=== PATIENT | female | born 1960 | race Caucasian/White ===

== ENCOUNTER 2016-08-16 12:56 | Emergency (ER) | payer OTHER ==
[~2016-08-16] VITALS: Ht 152.4 cm; Wt 56.0 kg
[~2016-08-16 12:56] MED LIST: ASPI-664 PO; ATEN50TA PO; BENA1TAB14 PO; CHOLESTEROL MED; FER325 PO; INHALER
[2016-08-16 13:07] VITALS: Ht 152.4 cm; Wt 56.0 kg
[2016-08-16] MEDS ORDERED: morphine 4 MG/ML VIAL IV STA (15:42)
[2016-08-16] MEDS ORDERED: ONDANSETRON 4 MG INJ IV STA (15:42)
[2016-08-16] MEDS ORDERED: SOD CHLORIDE 0.9% 1,000 ML IV STA (15:42)
[2016-08-16] MEDS ORDERED: hydrALAzine 20 MG INJ IV ONE (16:00)
[2016-08-16 16:03] LABS: BASOPHIL # 0.1 10^3/ul (0.0-0.1); BASOPHILS % 0.9 % (0.0-2.0); EOSINOPHILS # 0.3 10^3/ul (0.0-0.5); EOSINOPHILS % 3.6 % (0.0-7.0); HEMATOCRIT 42.6 % (37.0-47.0); LYMPHOCYTES # 2.3 10^3/ul (0.8-2.9); LYMPHOCYTES % 30.5 % (15.0-51.0); MEAN CORPUSCULAR HEMOGLOBIN 26.7 pg (29.0-33.0); MEAN CORPUSCULAR HGB CONC 32.9 g/dl (32.0-37.0); MEAN CORPUSCULAR VOLUME 81.1 fl (82.0-101.0); MEAN PLATELET VOLUME 9.4 fl (7.4-10.4); MONOCYTE # 0.5 10^3/ul (0.3-0.9); MONOCYTES % 6.4 % (0.0-11.0); NEUTROPHIL # 4.5 10^3/ul (1.6-7.5); NEUTROPHILS % 58.6 % (39.0-77.0); PLATELET COUNT 207 10^3/UL (140-440); RED BLOOD COUNT 5.26 10^6/ul (4.20-5.40); RED CELL DISTRIBUTION WIDTH 14.7 % (11.5-14.5); UNCORRECTED WBC 7.7 10^3/ul (4.8-10.8); WHITE BLOOD COUNT 7.7 10^3/ul (4.8-10.8)
[2016-08-16 16:14] LABS: CHLORIDE 101 mmol/L (97-110); INR 0.91; POTASSIUM 3.3 mmol/L (3.5-5.1); PROTIME 12.3 Sec (12.2-14.2); SODIUM 144 mmol/L (135-144)
[2016-08-16 16:15] LABS: PARTIAL THROMBOPLASTIN TIME 28.3 Sec (25.0-35.0)
[2016-08-16 16:16] LABS: AMYLASE 84 U/L (11-123)
[2016-08-16 16:17] LABS: ALANINE AMINOTRANSFERASE 28 IU/L (13-69); ALBUMIN/GLOBULIN RATIO 1.21; ALKALINE PHOSPHATASE 96 IU/L (42-121); ANION GAP 15 (8-16); ASPARTATE AMINO TRANSFERASE 26 IU/L (15-46); BILIRUBIN,INDIRECT 0.2 mg/dl (0-1.1); BILIRUBIN,TOTAL 0.2 mg/dl (0.2-1.3); BLOOD UREA NITROGEN 18 mg/dl (7-20); CALCIUM 9.2 mg/dl (8.4-10.2); CARBON DIOXIDE 31 mmol/L (21-31); CREATININE 0.59 mg/dl (0.44-1.00); GLUCOSE 91 mg/dl (70-220); TOTAL PROTEIN 7.3 g/dl (6.1-8.1)
[2016-08-16 16:19] LABS: CONDITION 1; LH ANALYZER COMMENTS 1
--- NOTE | 2016-08-16 16:22 | RADRPT ---
PROCEDURE: US right upper quadrant CLINICAL INDICATION: Abdominal pain TECHNIQUE: Multiple real-time images were acquired of the patient's right upper abdomen utilizing a high resolution transducer. COMPARISON: None available FINDINGS: Liver: Normal in size, contour and echogenicity. Normal directional blood flow is seen within the p atent main portal vein. The maximum dimension estimated at 13.8 cm . Gallbladder: No evidence of gallstones or sludge, the wall is thickened measuring 4.37 mm. No tay cholecystic fluid is present. No sonographic Middleton's sign is reported. Common bile duct: Normal; 3.65 mm. There is no evidence for choledocholithiasis. Right Kidney: Normal; maximum length measured at approximately 11.7 cm. Incidental simple cysts are present the largest measuring 4.1 x 3.7 x 3.7 cm. Pancreas: Visualized portions are normal. The tail is partially obscured by bowel gas. RPTAT:HJJR IMPRESSION: 1. Nonspecific gallbladder wall thickening without gallstones, a report of a sonographic Middleton's s ign or ductal dilatation. Findings may be related to hypoalbuminemia. 2. Incidental simple cysts of the right kidney. Physician Navi Date Time Electronically viewed and signed by Physician Navi on 08/16/2016 16:21 /
[2016-08-16 16:26] LABS: ADD UMIC YES; URINE BILIRUBIN (Dip) NEGATIVE (NEGATIVE); URINE BLOOD (Dip) TRACE (NEGATIVE); URINE COLOR LT. YELLOW (YELLOW); URINE GLUCOSE (Dip) NEGATIVE (NEGATIVE); URINE KETONES (Dip) NEGATIVE (NEGATIVE); URINE LEUKOCYTE ESTERASE (Dip) NEGATIVE (NEGATIVE); URINE NITRITE (Dip) NEGATIVE (NEGATIVE); URINE TOTAL PROTEIN (Dip) NEGATIVE (NEGATIVE); URINE UROBILINOGEN (Dip) 0.2 E.U./dL (0.1-1.0)
[2016-08-16] MEDS ORDERED: LORA0.5T PO (16:38)
[2016-08-16] MEDS ORDERED: ALBU18HF INHALATION (16:39)
[2016-08-16] MEDS ORDERED: LOSA1TAB21 PO (16:39)
[2016-08-16 16:41] LABS: TROPONIN-I < 0.012 ng/ml (0.00-0.12)
[2016-08-16 16:51] LABS: SQUAMOUS EPITHELIAL CELL,UR FEW
[2016-08-16 16:52] LABS: URINE RBCS 0-2 /HPF (0)
[2016-08-16 17:05] VITALS: TEMP 98.6
[2016-08-16] MEDS ORDERED: IOHEXOL 300MG/ML 150 ML BTL ONE (18:31)
[2016-08-16] MEDS ORDERED: SOD CHLORIDE 0.9% 100 ML ONE (18:31)
--- NOTE | 2016-08-16 18:33 | ERD ---
ER Documentation Chief Complaint Date/Time DATE: 08/16/16 TIME: 18:23 Chief Complaint pt bib self with c/o abd pain x 2 days HPI This is a very pleasant 56-year-old Indonesian-speaking female that presents to the emergency department complaining of intermittent right upper and lower quadrant pain for the past 2 days. The patient had appendectomy roughly 15 years ago. She indicates that the pain is more prominent at night and gets better throughout the day. She denies any associated symptoms of nausea vomiting diarrhea or constipation. She has had no recent travel or prolonged immobilization. She has no shortness of breath at rest or exertion. She denies any night sweats or weight loss. She did not take any analgesic medication for the pain. She indicates that the pain does not radiate to the back. The pain is not exacerbated with eating and there is no other alleviating factors to the pain. She has no chest pain or pressure that radiates to the neck arm back or jaw. ROS All systems reviewed and are negative except as per history of present illness. Medications Home Meds Active Scripts Ibuprofen* (Motrin*) 800 Mg Tab, 800 MG PO Q6H Y for PAIN AND OR ELEVATED TEMP, #30 TAB Prov:RAQUEL LOPEZ 08/16/16 Reported Medications Albuterol Sulfate* (Ventolin HFA*) 18 Gm Hfa.aer.ad, 2 PUFF INHALATION Q6H, #1 INHALER 08/16/16 Losartan-Hydrochlorothiazide (Losartan-HCTZ) 100-12.5 Mg Tab, 1 TAB PO DAILY, TAB 08/16/16 Lorazepam* (Lorazepam*) 0.5 Mg Tablet, 0.5 MG PO HS Y for ANXIETY, TAB 08/16/16 Aspirin* (Aspirin* EC) 81 Mg Tablet.dr, 81 MG PO DAILY, TAB 03/25/14 Discontinued Reported Medications [Cholesterol Med] No Conflict Check 03/19/16 [Inhaler] No Conflict Check 03/19/16 Ferrous Sulfate* (Ferrous Sulfate*) 325 Mg Tabec, 325 MG PO TID, TAB 03/25/14 Atenolol* (Atenolol*) 50 Mg Tablet, 50 MG PO DAILY, TAB 03/25/14 Benazepril-Hydrochlorothiazide (Benazepril-Hydrochlorothiazide) 20-25 Mg Tablet , 1 EACH PO DAILY, TAB 03/25/14 Allergies Allergies: Coded Allergies: No Known Allergy (Unverified , 08/16/16) PMhx/Soc History of Surgery: Yes (BILATERAL CYST REMOVAL IN BREAST, TUBAL LIGATION, APPENDECTOMY) Anesthesia Reaction: No Hx Neurological Disorder: No Hx Respiratory Disorders: Yes (ASTHMA) Hx Cardiac Disorders: Yes (HYPERTENSION, HYPERLIPIDEMA) Hx Psychiatric Problems: Yes (ANXIETY) Hx Miscellaneous Medical Probl: No Hx Alcohol Use: No Hx Substance Use: No Hx Tobacco Use: No Smoking Status: Never smoker Physical Exam Vitals Vital Signs Date Time Temp Pulse Resp B/P Pulse Ox O2 Delivery O2 Flow Rate FiO2 08/16/16 17:05 98.6 92 18 161/91 98 Room Air 08/16/16 13:07 98.8 73 18 198/90 97 Physical Exam Constitutional:Well-developed. Well-nourished. HEENT:Normocephalic. Atraumatic.Pupils were equal round reactive to light. Moist mucous membranes.No tonsillar exudates. Neck: No nuchal rigidity. No lymphadenopathy. No posterior cervical spine tenderness or step-offs. Respiratory: Not using accessory muscles of respiration.Lungs were clear to auscultation bilaterally. No rhonchi. No rales. No wheezing. Cardiovascular: Regular rate regular rhythm.No murmurs. No rubs were appreciated.S1, S2 normal. Distal pulses are palpable 2+ bilaterally. GI: Abdomen was soft. Tenderness in the right upper quadrant with negative Middleton's sign and minimal tenderness in the right lower quadrant. Non Distended. No pulsatile abdominal masses or bruits. No rebound. No guarding. Bowel sounds were present and normal. Muscle skeletal: Full range of motion of both the upper and lower extremities bilaterally.Normal muscle tone.No assymetrical calf tenderness or swelling. Skin: No petechia, no purpura. No lesions on the palms or the soles of the feet. No maculopapular rash. NEURO: Patient was alert, awake, orientated x3.No facial droop. Gait observed and normal with no ataxia.Speech had regular rate and rhythm. No focal neurological deficits. Result Diagram: 08/16/16 1545 08/16/16 1545 Results 24 hrs Laboratory Tests Test 08/16/16 15:45 Activated Partial Thromboplast Time 28.3Sec Alanine Aminotransferase (ALT/SGPT) 28IU/L Albumin 4.0g/dl Albumin/Globulin Ratio 1.21 Alkaline Phosphatase 96IU/L Amylase Level 84U/L Anion Gap 15 Aspartate Amino Transf (AST/SGOT) 26IU/L Basophils # 0.110^3/ul Basophils % 0.9% Blood Morphology Comment Blood Urea Nitrogen 18mg/dl Calcium Level 9.2mg/dl Carbon Dioxide Level 31mmol/L Chloride Level 101mmol/L Creatinine 0.59mg/dl Direct Bilirubin 0.00mg/dl Eosinophils # 0.310^3/ul Eosinophils % 3.6% Globulin 3.30g/dl Glucose Level 91mg/dl Hematocrit 42.6% Hemoglobin 14.0g/dl INR International Normalized Ratio 0.91 Indirect Bilirubin 0.2mg/dl Lipase 129U/L Lymphocytes # 2.310^3/ul Lymphocytes % 30.5% Mean Corpuscular Hemoglobin 26.7pg Mean Corpuscular Hemoglobin Concent 32.9g/dl Mean Corpuscular Volume 81.1fl Mean Platelet Volume 9.4fl Monocytes # 0.510^3/ul Monocytes % 6.4% Neutrophils # 4.510^3/ul Neutrophils % 58.6% Nucleated Red Blood Cells # 0.010^3/ul Nucleated Red Blood Cells % 0.0/100WBC Platelet Count 74982^3/UL Potassium Level 3.3mmol/L Prothrombin Time 12.3Sec Prothrombin Time Ratio 1.0 Red Blood Count 5.2610^6/ul Red Cell Distribution Width 14.7% Sodium Level 144mmol/L Total Bilirubin 0.2mg/dl Total Protein 7.3g/dl Troponin I < 0.012ng/ml Urine Bilirubin NEGATIVE Urine Clarity CLEAR Urine Color LT. YELLOW Urine Glucose NEGATIVE% Urine Hemoglobin TRACE Urine Ketones NEGATIVE Urine Leukocyte Esterase NEGATIVE Urine Microscopic RBC 0-2/HPF Urine Microscopic WBC 0-2/HPF Urine Nitrite NEGATIVE Urine Specific [place] 1.015 Urine Squamous Epithelial Cells FEW Urine Total Protein NEGATIVE Urine Urobilinogen 0.2 E.U./dL Urine pH 5.5 White Blood Count 7.710^3/ul Current Medications Medications (Trade) Dose Ordered Sig/Tracy Route PRN Reason Start Time Stop Time Status Last Admin Dose Admin Sodium Chloride (NS) 1,000 ml @ 1,000 mls/hr Q1H STAT IV 08/16/16 15:42 08/16/16 16:41 DC 08/16/16 16:11 Morphine Sulfate (morphine) 4 mg ONCE STAT IV 08/16/16 15:42 08/16/16 15:43 DC Ondansetron HCl (Zofran Inj) 4 mg ONCE STAT IV 08/16/16 15:42 08/16/16 15:43 DC Hydralazine HCl (Apresoline) 10 mg ONCE ONCE IV 08/16/16 16:00 08/16/16 16:01 DC 08/16/16 16:10 IV Flush 10 ml 10 ml STK-MED ONCE .ROUTE 08/16/16 18:31 08/16/16 18:32 DC 08/16/16 18:45 Sodium Chloride (NS) 100 ml @ ud STK-MED ONCE .ROUTE 08/16/16 18:31 08/16/16 18:32 DC 08/16/16 18:45 Iohexol (Omnipaque 300mg/ ml) 150 ml STK-MED ONCE .ROUTE 08/16/16 18:31 08/16/16 18:32 DC 08/16/16 18:45 Procedures/MDM This patient presented to the emergency department with abdominal pain and was seen and evaluated by myself. My differential diagnosis included but was not limited to abdominal aortic aneurysm, appendicitis, pancreatitis, perforated peptic ulcer, perforated viscus, Boerhaaves syndrome or visceral pain such as diverticulitis, DKA, esophagitis, hepatitis or bowel obstruction. The patient was placed on a panel monitor, continuous pulse oximetry, and IV access was established by nursing staff. The patient was refusing analgesic medication at this time. 12 Lead EKG tracing ordered and reviewed by myself showed: Normal sinus rhythm of 79 bpm and no arrhythmia. IL interval normal. QRS duration normal. No ST segment elevation No ST segment depression. No changes consistent with acute ischemia. I did obtain an ultrasound of the gallbladder given the patient did have reproducible right upper quadrant pain. This was reviewed by myself and the radiologist and indicated the followin. Nonspecific gallbladder wall thickening without gallstones, a report of a sonographic Middleton's sign or ductal dilatation. Findings may be related to hypoalbuminemia. 2. Incidental simple cysts of the right kidney. I did feel is necessary to repeat a CT scan of the abdomen to rule out other life-threatening etiology such as an abdominal aortic aneurysm or neoplasm. CT scan was reviewed by myself and the radiologist and indicated the following: No evidence of obstruct uropathy, diverticulitis or appendicitis. Cluster small stones lower pole left kidney. Bilateral renal cysts. Hepatic cysts. I indicated to the patient that he did not have an exact etiology into her pain but she felt comfortable being discharged home and following up on an outpatient basis as I did feel she would benefit from a colonoscopy. This patient also presented to the emergency department with severely elevated blood pressure and an history of hypertension. My differential diagnosis included but was not limited to conditions that could end-organ damage such as acute coronary syndrome, acute pulmonary edema, aortic dissection, subarachnoid hemorrhage, intracerebral hemorrhage, cerebral infarction, withdrawal syndromes from beta blockers, or states of catecholamine excess such as pheochromocytoma or drug intoxication. Ancillary lab work was obtained. There was no elevation in the BUN and creatinine to suggest acute renal failure. Electrolytes were normal. Cardiac enzyme was normal and the 12 lead EKG showed no acute ischemic changes or left ventricular hypertrophy. Given that the patient had an absence of cerebral, ocular, cardiac or renal damage the hypertensive urgency was treated with IV hydralazine in the emergency room with improvement of the patient's blood pressure. The patient likely appeared to be complaint with primary care physician and will follow up with their PCP in the next 24-48 hours. They were instructed to return to the emergency department at anytime if there is any worsening of their condition such as development of chest pain or a headache. They were instructed to resume previous medication regimen or initiate a suitable medication regimen under care of the PCP to enable proper monitoring for drug reactions. The patient was also informed on the adverse side effects and adverse drug interactions of the medications prescribed to them by myself. The patient gave informed consent to the prescription of the new medication. Departure Diagnosis: Primary Impression: Abdominal pain Abdominal location: right upper quadrant Qualified Code: R10.11 - Right upper quadrant abdominal pain Additional Impression: Hypertensive urgency Condition: RAQUEL Bennett Aug 16, 2016 18:33
--- NOTE | 2016-08-16 19:02 | RADRPT ---
PROCEDURE: CT abdomen and pelvis with intravenous contrast. CLINICAL INDICATION: Abdominal Pain TECHNIQUE: Following intravenous contrast, spiral CT of the abdomen pelvis was performed and is re constructed at 2.5 mm contiguous axial intervals from the dome of the diaphragm to the inferior pubi c rami. Computer reformatted coronal and sagittal images are included. CT D I 7 millicurie Dose 375 millicurie per centimeter COMPARISON: None. FINDINGS: Lung bases are clear of any infiltrate or mass. There is no effusion. The liver is of normal size, contour and attenuation with no solid mass or ductal dilatation. There are scattered hepatic cysts measuring up to 1 cm in diameter. No gallstones are seen. No splenic, adrenal or pancreatic abnormalities present. Kidneys excrete contrast symmetrically. No hydronephrosis or solid masses present. There is a clus ter of stones in the lower pole of the left kidney measuring up to 3 mm in diameter. Bilateral michell ical renal cysts are present, the largest of which is in the upper pole of the right kidney measurin g 5 cm in diameter. Ureters are of normal course and caliber with no stone. No bladder mass or sto ne is present. Uterus and ovaries are normal. No bowel mass or obstruction is seen. There is no phlegmon, ascites or pneumoperitoneum. Appendix i s not confidently visualized, however, no inflamed appendix is seen. No aneurysm is detected. There is no adenopathy. The osseous structures are intact. IMPRESSION: No evidence of obstruct uropathy, diverticulitis or appendicitis. Cluster small stones lower pole le ft kidney. Bilateral renal cysts. Hepatic cysts. .João Toledo MD, MD Date Time Electronically viewed and signed by .João Toledo MD, on 08/16/2016 19:02 .A/
[2016-08-16] MEDS ORDERED: IBUP800T25 PO (19:32)
[2016-08-16] MEDS ORDERED: KETOROLAC 30 MG INJ IV STA (19:39)
[2016-08-16 20:01] VITALS: BP 127/89; PULSE 65; RESP 20
== END 2016-08-16 20:29 | disposition home or self-care (01) ==
LOC: E/R 12:56
DX: R10.11 Right upper quadrant pain (principal); I16.0 Hypertensive urgency; I10 Essential (primary) hypertension; J45.909 Unspecified asthma, uncomplicated; Z79.82 Long term (current) use of aspirin
CPT/HCPCS: 36415; 74177; 76705; 80053; 81001; 82150; 83690; 84484; 85025; 85610; 85730; 93005; 96374; 96375; J0360; J1885; J7030; Q9967; Z7502; Z7610; 81003; J2270; J2405

== ENCOUNTER 2017-07-08 17:20 | Inpatient (IN) | END 2017-07-09 18:20 | disposition home or self-care (01) | DRG 872 ==